=== PATIENT | female | born 1975 | race Two or more races ===

== ENCOUNTER 2019-04-02 18:27 | Emergency (ER) | payer OTHER ==
[~2019-04-02] VITALS: Ht 167.6 cm; Wt 45.4 kg
[2019-04-02] MEDS ORDERED: GABAPENTIN100 MG ORAL (18:34)
[2019-04-02] MEDS ORDERED: NORCO 5-325 TA1 EACH ORAL (18:34)
--- NOTE | 2019-04-02 18:40 | NUR ---
ED Nurse Note: Patient walked into ED from home due to patient unable to urinate since this morning. patient also reports she has been having a back surgery (L4-L5). 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 patient is alert awake x4 ambulatory, breathing unlabored and even, patient placed on a hospital gown and placed on a youth nutritional monitor.
[2019-04-02] MEDS ORDERED: Omnipaque-300 100ml vial INJ PRN (18:45)
[2019-04-02] MEDS ORDERED: D5NS 1,000 ML IV ONE (18:45)
--- NOTE | 2019-04-02 19:08 | Emergency Room Report ---
History of Present Illness General Chief Complaint: General Complaint Source: Patient (Antelmo Andrews MD) Present Illness HPI 43-year-old female history of chronic back pain, history of L4-L5 fusion in December 2018, presents with acute urinary retention x1 day, this a.m. she has been unable to urinate, she endorses some sweats, no aggravating or alleviating factors severity is moderate, constant patient denies any new lower extremity weakness, no fever, no chest pain no shortness of breath no abdominal pain patient presents for evaluation. (Antelmo Andrews MD) Allergies: Coded Allergies: No Known Allergies (Unverified , 04/02/19) Patient History Past Medical History: see triage record Reviewed Nursing Documentation: PMH: Agreed; PSxH: Agreed (Antelmo Andrews MD) Nursing Documentation-PMH Hx Cancer: Yes - bulbar ca (Antelmo Andrews MD) Review of Systems All Other Systems: negative except mentioned in HPI (Antelmo Andrews MD) Physical Exam Vital Signs Date Time Temp Pulse Resp B/P (MAP) Pulse Ox O2 Delivery O2 Flow Rate FiO2 04/02/19 18:30 97.9 112 17 123/70 (87) 100 Room Air Sp02 EP Interpretation: reviewed, normal General Appearance: well appearing, no apparent distress, alert Head: normocephalic, atraumatic Eyes: bilateral eye PERRL, bilateral eye EOMI ENT: uvula midline, moist mucus membranes Neck: supple, thyroid normal, supple/symm/no masses Respiratory: lungs clear, no respiratory distress, no retraction, no accessory muscle use Cardiovascular #1: normal peripheral pulses, regular rate, rhythm, no edema, no gallop, no murmur Gastrointestinal: non tender, no guarding, no rebound, other - Suprapubic fullness, bladder scan shows a large amount of urine Rectal: normal rectal tone, other - Medical Reception Specialist Shy SKINNER Musculoskeletal: normal inspection Neurologic: alert, oriented x3 Psychiatric: mood/affect normal Skin: no rash, warm/dry (Antelmo Andrews MD) Procedures Critical Care Time Critical Care Time i. I feel this is a highly complex case requiring extensive working including EKG/Rhythm strip, Xray/CT/US, Blood/urine lab work, repeat exams while in ED, and administration of strong opiates/narcotics for pain control, admission to hospital or close patient follow up. Total time: 75 min bedside evaluation and treatment excludes procedures (EKG). Reason for critical care: urinary retention, neurolgical deficits, abdominal mass, spinal involvement Possible complications: hypotension, hypertension, CT, shock, arrhythmias, metabolic acidosis, end organ damage, respiratory failure. Interventions: Labs, meds, MRI L-spine, Bob catheter, CT abdomen pelvis, MRI pelvis, discussion with neurosurgery and antibiotics Course: Patient presenting with urinary retention. Back pain. Status post back surgery in December. Bladder scanner showed large volume and patient was placed with Bob. MRI shows large mass intruding on the spine. MRI pelvis documents further of the mass. Patient will require neurosurgical evaluation. Neurosurgeon that performed the surgery is currently credentialed at [place]. However [facility] does not have beds at this time. Currently contacting [facility], [facility] [[email or web address]] and [facility] for higher level of care. Consultations: nursing staff, EMS, family Performed by: Dr Schmidt Tolerated well condition = critical j. because of unstable vital signs this patient had a condition that could potentially threaten life or limb. I feel this is a critical patient who required my full attention while patient was considered critical. Total Critical Care Time excluding procedures was greater than 75 minutes (Jc Schmidt MD) Medical Decision Making Diagnostic Impression: Primary Impression: Urinary retention Additional Impressions: Pelvic mass in female Cauda equina syndrome ER Course 43-year-old female history of back surgery presents with inabilityto urinate x1 day, concerning for cauda equina, a Bob was emergently inserted Patient found to have a mass invading into the sacrum, which may be affecting her nerve roots, patient is able ambulate. Patient bladder decompressed, patient signed out to Dr. Schmidt for further evaluation, Laboratory Tests Test 04/02/19 18:45 04/02/19 19:11 White Blood Count 24.1 K/UL (4.8-10.8) *H Red Blood Count 3.81 M/UL (4.20-5.40) L Hemoglobin 8.5 G/DL (12.0-16.0) L Hematocrit 28.0 % (37.0-47.0) L Mean Corpuscular Volume 73 FL (80-99) L Mean Corpuscular Hemoglobin 22.4 PG (27.0-31.0) L Mean Corpuscular Hemoglobin Concent 30.5 G/DL (32.0-36.0) L Red Cell Distribution Width 13.1 % (11.6-14.8) Platelet Count 921 K/UL (150-450) H Mean Platelet Volume 4.6 FL (6.5-10.1) L Neutrophils (%) (Auto) % (45.0-75.0) Lymphocytes (%) (Auto) % (20.0-45.0) Monocytes (%) (Auto) % (1.0-10.0) Eosinophils (%) (Auto) % (0.0-3.0) Basophils (%) (Auto) % (0.0-2.0) Differential Total Cells Counted 100 Neutrophils % (Manual) 90 % (45-75) H Lymphocytes % (Manual) 5 % (20-45) L Monocytes % (Manual) 5 % (1-10) Eosinophils % (Manual) 0 % (0-3) Basophils % (Manual) 0 % (0-2) Band Neutrophils 0 % (0-8) Platelet Estimate Increased H Platelet Morphology Normal Hypochromasia 1+ Anisocytosis 1+ Microcytosis 1+ Prothrombin Time 11.8 SEC (9.30-11.50) H Prothrombin Time INR 1.1 (0.9-1.1) PTT 29 SEC (23-33) Sodium Level 134 MMOL/L (136-145) L Potassium Level 4.0 MMOL/L (3.5-5.1) Chloride Level 99 MMOL/L (98-107) Carbon Dioxide Level 26 MMOL/L (21-32) Anion Gap 9 mmol/L (5-15) Blood Urea Nitrogen 12 mg/dL (7-18) Creatinine 0.8 MG/DL (0.55-1.30) Estimate Glomerular Filtration Rate > 60 mL/min (>60) Glucose Level 116 MG/DL (74-106) H Calcium Level 9.5 MG/DL (8.5-10.1) Total Bilirubin 0.3 MG/DL (0.2-1.0) Aspartate Amino Transferase (AST) 35 U/L (15-37) Alanine Aminotransferase (ALT) 29 U/L (12-78) Alkaline Phosphatase 108 U/L (46-116) Total Protein 8.6 G/DL (6.4-8.2) H Albumin 2.6 G/DL (3.4-5.0) L Globulin 6.0 g/dL Albumin/Globulin Ratio 0.4 (1.0-2.7) L Lipase 103 U/L (73-393) Human Chorionic Gonadotropin, Quant 1 mIU/mL (1-6) Urine Color Pale yellow Urine Appearance Clear Urine pH 6.5 (4.5-8.0) Urine Specific [place] 1.010 (1.005-1.035) Urine Protein Negative (NEGATIVE) Urine Glucose (UA) Negative (NEGATIVE) Urine Ketones Negative (NEGATIVE) Urine Blood Negative (NEGATIVE) Urine Nitrite Negative (NEGATIVE) Urine Bilirubin Negative (NEGATIVE) Urine Urobilinogen Normal MG/DL (0.0-1.0) Urine Leukocyte Esterase Negative (NEGATIVE) Urine HCG, Qualitative Negative (NEGATIVE) Urine Opiates Screen Negative (NEGATIVE) Urine Barbiturates Screen Negative (NEGATIVE) Phencyclidine (PCP) Screen Negative (NEGATIVE) Urine Amphetamines Screen Negative (NEGATIVE) Urine Benzodiazepines Screen Negative (NEGATIVE) Urine Cocaine Screen Negative (NEGATIVE) Urine Marijuana (THC) Screen Negative (NEGATIVE) (Antelmo Andrews MD) ER Course Patient signed out to me pending CT abdomen pelvis and MRI pelvis. Patient initially seen and evaluated by Dr Andrews; please see his note for full history and physical MRI of L-spine documents a mass that is invading the sacrum and below. CT of abdomen/pelvis comments on a large sacral mass destroying the sacrum and coccyx but unable to clarify the origin of this mass. MRI pelvis describes a sacral coccyx mass which extends into the perirectal region. She is clearly having neurological symptoms with urinary retention. She documented a fever. Afebrile in triage. Has significant white count. Unclear on source. UA negative. X-ray clear. No evidence of epidural abscess or other infectious process on CT or MRI. Broad-spectrum antibiotics given. Patient will require higher level of care transfer. Insurance attempted to transfer patient tests [facility] however they were uncomfortable with this admission and recommended tertiary hospital. The spine surgeon no longer works at [facility] but works at [facility]. We contacted [facility] and while the physician accepted they do not have beds at this time. Currently patient will require higher level of care. We have since reached out to [facility], [facility] and [facility] [[email or web address] We are waiting to hear back Labs Test 04/02/19 18:45 04/02/19 19:11 04/02/19 22:50 White Blood Count 24.1 K/UL (4.8-10.8) Red Blood Count 3.81 M/UL (4.20-5.40) Hemoglobin 8.5 G/DL (12.0-16.0) Hematocrit 28.0 % (37.0-47.0) Mean Corpuscular Volume 73 FL (80-99) Mean Corpuscular Hemoglobin 22.4 PG (27.0-31.0) Mean Corpuscular Hemoglobin Concent 30.5 G/DL (32.0-36.0) Red Cell Distribution Width 13.1 % (11.6-14.8) Platelet Count 921 K/UL (150-450) Mean Platelet Volume 4.6 FL (6.5-10.1) Neutrophils (%) (Auto) % (45.0-75.0) Lymphocytes (%) (Auto) % (20.0-45.0) Monocytes (%) (Auto) % (1.0-10.0) Eosinophils (%) (Auto) % (0.0-3.0) Basophils (%) (Auto) % (0.0-2.0) Differential Total Cells Counted 100 Neutrophils % (Manual) 90 % (45-75) Lymphocytes % (Manual) 5 % (20-45) Monocytes % (Manual) 5 % (1-10) Eosinophils % (Manual) 0 % (0-3) Basophils % (Manual) 0 % (0-2) Band Neutrophils 0 % (0-8) Platelet Estimate Increased Platelet Morphology Normal Hypochromasia 1+ Anisocytosis 1+ Microcytosis 1+ Prothrombin Time 11.8 SEC (9.30-11.50) Prothromb Time International Ratio 1.1 (0.9-1.1) Activated Partial Thromboplast Time 29 SEC (23-33) Sodium Level 134 MMOL/L (136-145) Potassium Level 4.0 MMOL/L (3.5-5.1) Chloride Level 99 MMOL/L (98-107) Carbon Dioxide Level 26 MMOL/L (21-32) Anion Gap 9 mmol/L (5-15) Blood Urea Nitrogen 12 mg/dL (7-18) Creatinine 0.8 MG/DL (0.55-1.30) Estimat Glomerular Filtration Rate > 60 mL/min (>60) Glucose Level 116 MG/DL (74-106) Calcium Level 9.5 MG/DL (8.5-10.1) Total Bilirubin 0.3 MG/DL (0.2-1.0) Aspartate Amino Transf (AST/SGOT) 35 U/L (15-37) Alanine Aminotransferase (ALT/SGPT) 29 U/L (12-78) Alkaline Phosphatase 108 U/L (46-116) Total Protein 8.6 G/DL (6.4-8.2) Albumin 2.6 G/DL (3.4-5.0) Globulin 6.0 g/dL Albumin/Globulin Ratio 0.4 (1.0-2.7) Lipase 103 U/L (73-393) Human Chorionic Gonadotropin, Quant 1 mIU/mL (1-6) Urine Color Pale yellow Urine Appearance Clear Urine pH 6.5 (4.5-8.0) Urine Specific [place] 1.010 (1.005-1.035) Urine Protein Negative (NEGATIVE) Urine Glucose (UA) Negative (NEGATIVE) Urine Ketones Negative (NEGATIVE) Urine Blood Negative (NEGATIVE) Urine Nitrite Negative (NEGATIVE) Urine Bilirubin Negative (NEGATIVE) Urine Urobilinogen Normal MG/DL (0.0-1.0) Urine Leukocyte Esterase Negative (NEGATIVE) Urine HCG, Qualitative Negative (NEGATIVE) Urine Opiates Screen Negative (NEGATIVE) Urine Barbiturates Screen Negative (NEGATIVE) Phencyclidine (PCP) Screen Negative (NEGATIVE) Urine Amphetamines Screen Negative (NEGATIVE) Urine Benzodiazepines Screen Negative (NEGATIVE) Urine Cocaine Screen Negative (NEGATIVE) Urine Marijuana (THC) Screen Negative (NEGATIVE) Lactic Acid Level 1.10 mmol/L (0.4-2.0) (Jc Schmidt MD) EKG Diagnostic Results EKG Time: 18:54 EP Interpretation: Sinus tachycardia, rate 106, QTc 433, no acute ST elevations , normal axis (Antelmo Andrews MD) Rhythm Strip Diag. Results Rhythm Strip Time: 19:08 EP Interpretation: yes Rate: 112 Rhythm: no PVC's, no ectopy, other - Sinus tachycardia (Antelmo Andrews MD) Chest X-Ray Diagnostic Results Chest X-Ray Diagnostic Results : Chest X-Ray Ordered: Yes # of Views/Limited/Complete: 1 View Indication: Other - preop EP Interpretation: Yes Interpretation: no consolidation, no effusion, no pneumothorax, no acute cardiopulmonary disease Impression: No acute disease Electronically Signed by: Antelmo Andrews MD (Antelmo Andrews MD) CT/MRI/US Diagnostic Results CT/MRI/US Diagnostic Results : Impression Final Report ADDENDUM - Added by Efraín Colbert MD on 04/02/2019 9:27 PM (-07:00) FINDINGS: Vertebral elements: Normal vertebral body height within the lumbar spine. Grade 1 anterolisthesis of L5 on S1. There is a large infiltrating mass in the pelvis invading to the sacrum starting from S2 and below. The mass appears to invade into the very distal spinal canal in the sacrum. Postsurgical changes: L4-S1 fusion with posterior decompression. Discs: Dosing and disc height loss. Marrow signal: No edema. Soft tissues: Posterior paraspinal soft tissue changes related to laminectomy and fusion. Conus terminates from L1. Spinal canal: No significant spinal canal stenosis at any level. No significant disc herniations. Neural foramen: Mild bilateral L5-S1 foraminal stenosis. IMPRESSION: Large infiltrating pelvic mass invading in to the sacrum and into the spinal canal. Incompletely characterized once exam. Recommend pelvic MRI with and without contrast for complete characterization and to see if there are involvement of the nerve roots. No definite infectious process or complication from surgery. (Antelmo Andrews MD) CT/MRI/US Diagnostic Results #1: Imaging Test Ordered: MRI L spine Impression Procedure: MRI L Spine no Contrast ADDENDUM - Added by Efraín Colbert MD on 04 02 2019 9:27 PM (-07:00) FINDINGS: Vertebral elements: Normal vertebral body height within the lumbar spine. Grade 1 anterolisthesis of L5 on S1. There is a large infiltrating mass in the pelvis invading to the sacrum starting from S2 and below. The mass appears to invade into the very distal spinal canal in the sacrum. Postsurgical changes: L4-S1 fusion with posterior decompression. Discs: Dosing and disc height loss. Marrow signal: No edema. Soft tissues: Posterior paraspinal soft tissue changes related to laminectomy and fusion. Conus terminates from L1. Spinal canal: No significant spinal canal stenosis at any level. No significant disc herniations. Neural foramen: Mild bilateral L5-S1 foraminal stenosis. IMPRESSION: Large infiltrating pelvic mass invading in to the sacrum and into the spinal canal. Incompletely characterized once exam. Recommend pelvic MRI with and without contrast for complete characterization and to see if there are involvement of the nerve roots. No definite infectious process or complication from surgery. EXAM: MR Lumbar Spine Without Intravenous Contrast CLINICAL HISTORY: PAIN TECHNIQUE: Magnetic resonance images of the lumbar spine without intravenous contrast in multiple planes. COMPARISON: No relevant prior studies available. FINDINGS: Vertebral elements: Normal vertebral body height. Grade 1 anterolisthesis of L5 on S1. Postsurgical changes: L4-S1 fusion with posterior decompression. Discs: Dosing and disc height loss. Marrow signal: No edema. Soft tissues: Posterior paraspinal soft tissue changes related to laminectomy and fusion. Conus terminates from L1. Spinal canal: No significant spinal canal stenosis at any level. No significant disc herniations. Neural foramen: Mild bilateral L5-S1 foraminal stenosis. IMPRESSION: 1. No acute findings. Postsurgical changes from fusion. 2. No significant spinal canal stenosis. Mild bilateral L5-S1 foraminal stenosis. CT/MRI/US Diagnostic Results #2: Imaging Test Ordered: CT A/P Impression Procedure: CT Abdomen Pelvis w/Contrast EXAM: CT Abdomen and Pelvis With Intravenous Contrast CLINICAL HISTORY: ABD PAIN TECHNIQUE: Axial computed tomography images of the abdomen and pelvis with intravenous contrast. CTDI is 13 mGy and DLP is 710 mGy-cm. One or more of the following dose reduction techniques were used: automated exposure control, adjustment of the mA and or kV according to patient size, use of iterative reconstruction technique. COMPARISON: MRI lumbar spine 10 19 FINDINGS: Lung bases: No mass. No consolidation. ABDOMEN: Liver : at least 5 lesions in the liver largest measuring up to 4.2 cm in the right liver. Gallbladder and bile ducts: Unremarkable. Pancreas: Unremarkable. Spleen: Unremarkable. Adrenals: Unremarkable. Kidneys and ureters: No hydronephrosis. Stomach and bowel: No bowel obstruction. No bowel wall thickening. PELVIS: Appendix: No evidence of appendicitis. Bladder: Unremarkable. Bob catheter is inserted. Reproductive: Uterus appears unremarkable. ABDOMEN and PELVIS: Intraperitoneal space: 3.6 cm enhancing mass in the right lower pelvis which appears to be connected to the larger mass in the sacral area. Bones joints: No acute fractures. Soft tissues: Large partially necrotic destructive mass measuring 6.5 x 13 x 9 cm in the sacral region destructing through the mid right lower half of the sacrum and the mid to upper coccyx. There are multiple enlarged nodules in the bilateral buttocks subcutaneous tissue. Vasculature: No abdominal aortic aneurysm. Lymph nodes: No enlarged lymph nodes. IMPRESSION: 1. Large partially necrotic sacral mass destructing through the sacrum and coccyx. Possibly gastrointestinal versus ovarian in origin. Recommend MRI of the pelvis for better characterization. 2. 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 3. Multiple nodules in the bilateral buttocks subcutaneous tissue. Possibly lymph nodes or iatrogenic injections. CT/MRI/US Diagnostic Results #3: Imaging Test Ordered: MRI Pelvis Impression EXAM: MR Pelvis Without and With Intravenous Contrast CLINICAL HISTORY: PAIN TECHNIQUE: Multiplanar magnetic resonance images of the pelvis without and with intravenous contrast. COMPARISON: [address] FINDINGS: Bowel: No bowel obstruction. Bladder: Unremarkable. Reproductive: Unremarkable as visualized. Bones joints: 12 x 6 x 9 cm heterogeneous sacral coccyx mass, which extends to the right perirectal region. Mild edema in the right ischium likely secondary to nearby mass, cannot exclude osteomyelitis or nondisplaced fracture. Soft tissues: Bilateral gluteal postprocedure changes and soft tissue edema. Vasculature: Unremarkable as visualized. Lymph nodes: Unremarkable. IMPRESSION: 1. 12 x 6 x 9 cm heterogeneous sacral coccyx mass, which extends to the right perirectal region. 2. Mild edema in the right ischium likely secondary to nearby mass, cannot exclude osteomyelitis or nondisplaced fracture. (Jc Schmidt MD) Last Vital Signs Date Time Temp Pulse Resp B/P (MAP) Pulse Ox O2 Delivery O2 Flow Rate FiO2 04/02/19 18:30 97.9 112 17 123/70 (87) 100 Room Air (Antelmo Andrews MD) Status: improved (Jc Schmidt MD) Reevaluation Time: 15:08 Reevaluation Impression I assumed care of the patient early this morning approximately 7 AM. The patient was awaiting accepting facility for oncology and neurosurgery evaluation. She has been accepted to [facility] and will be transferred by ambulance as soon as a bed is available. Bob catheter remains in place with the patient is able to ambulate somewhat in the emergency department. She is complaining of persistent pain which we will treat. She is stable for transfer. (Velasquez Prado MD) Disposition: XFER SHT-TRM HOSP Condition: Critical Referrals: [facility],REFERRING (PCP) Antelmo Andrews MD Apr 02, 2019 19:08 Jc Schmidt MD Apr 03, 2019 03:50 Velasquez Prado MD Apr 03, 2019 15:09
[2019-04-02 19:11] LABS: HEMOGLOBIN 8.5 G/DL (12.0-16.0); MEAN CORPUSCULAR VOLUME 73 FL (80-99); PLATELET COUNT 921 K/UL (150-450); RED BLOOD COUNT 3.81 M/UL (4.20-5.40); RED CELL DISTRIBUTION WIDTH 13.1 % (11.6-14.8)
[2019-04-02 19:12] LABS: INR 1.1 (0.9-1.1)
--- NOTE | 2019-04-02 19:21 | NUR ---
HAND-OFF: Report given to Samreen Roberson RN.
[2019-04-02 19:23] LABS: WHITE BLOOD COUNT 24.1 K/UL (4.8-10.8)
[2019-04-02 19:26] LABS: ANION GAP 9 mmol/L (5-15); BLOOD UREA NITROGEN 12 mg/dL (7-18); CALCIUM 9.5 MG/DL (8.5-10.1); CARBON DIOXIDE 26 MMOL/L (21-32); CHLORIDE 99 MMOL/L (98-107); CREATININE 0.8 MG/DL (0.55-1.30); SODIUM 134 MMOL/L (136-145)
[2019-04-02 19:30] LABS: ALANINE AMINOTRANSFERASE 29 U/L (12-78); ALBUMIN 2.6 G/DL (3.4-5.0); ALBUMIN/GLOBULIN RATIO 0.4 (1.0-2.7); ALKALINE PHOSPHATASE 108 U/L (46-116); ASPARTATE AMINO TRANSFERASE 35 U/L (15-37); BILIRUBIN,TOTAL 0.3 MG/DL (0.2-1.0)
[2019-04-02 19:30] LABS: APPEARANCE,URINE CLEAR; BILIRUBIN, URINE NEGATIVE (NEGATIVE); COLOR,URINE PALE YELLOW; GLUCOSE, URINE (UA) NEGATIVE (NEGATIVE); KETONES,URINE NEGATIVE (NEGATIVE); LEUKOCYTE ESTERASE ,URINE NEGATIVE (NEGATIVE); NITRITE,URINE NEGATIVE (NEGATIVE); PH,URINE 6.5 (4.5-8.0); PROTEIN,URINE NEGATIVE (NEGATIVE); UROBILINOGEN,URINE NORMAL MG/DL (0.0-1.0)
[2019-04-02] MEDS: fentaNYL 100 mcg/2 mL IV ONE ×2 (19:30→19:47)
--- NOTE | 2019-04-02 19:30 | NUR ---
ED Nurse Note: Recieved report from am nurse to resume care, pt in bed awake, alert and oriented x 4, pt is on cardiac monitoring, has patent saline lock in right arm and espinosa to gravity, espinosa emptied with 1000ml of urine noted and still running, md aware, pt c/o having severe back pain, pt repositioned with pillows and MD informed pt request for pain meds, will resume care as ordered and continue to closely monitor.
[2019-04-02 19:45] VITALS: BP 129/74
[2019-04-02] MEDS ORDERED: HYDROcodone/Acetamin 5/325 tab ORAL ONE (20:00)
--- NOTE | 2019-04-02 20:18 | NUR ---
To MRI on a stretcher.
--- NOTE | 2019-04-02 20:36 | Diagnostic Imaging Report ---
EXAM: XR Chest, 1 View CLINICAL HISTORY: PREOP TECHNIQUE: Frontal view of the chest. COMPARISON: No relevant prior studies available. FINDINGS: Lungs: No consolidation or mass. Pleural space: No acute findings Heart: No cardiomegaly. Mediastinum: Unremarkable. Bones joints: No acute findings. IMPRESSION: No acute cardiopulmonary process.
--- NOTE | 2019-04-02 21:16 | Diagnostic Imaging Report ---
ADDENDUM - Added by Efraín Colbert MD on 04 02 2019 9:27 PM (-07:00) FINDINGS: Vertebral elements: Normal vertebral body height within the lumbar spine. Grade 1 anterolisthesis of L5 on S1. There is a large infiltrating mass in the pelvis invading to the sacrum starting from S2 and below. The mass appears to invade into the very distal spinal canal in the sacrum. Postsurgical changes: L4-S1 fusion with posterior decompression. Discs: Dosing and disc height loss. Marrow signal: No edema. Soft tissues: Posterior paraspinal soft tissue changes related to laminectomy and fusion. Conus terminates from L1. Spinal canal: No significant spinal canal stenosis at any level. No significant disc herniations. Neural foramen: Mild bilateral L5-S1 foraminal stenosis. IMPRESSION: Large infiltrating pelvic mass invading in to the sacrum and into the spinal canal. Incompletely characterized once exam. Recommend pelvic MRI with and without contrast for complete characterization and to see if there are involvement of the nerve roots. No definite infectious process or complication from surgery. EXAM: MR Lumbar Spine Without Intravenous Contrast CLINICAL HISTORY: PAIN TECHNIQUE: Magnetic resonance images of the lumbar spine without intravenous contrast in multiple planes. COMPARISON: No relevant prior studies available. FINDINGS: Vertebral elements: Normal vertebral body height. Grade 1 anterolisthesis of L5 on S1. Postsurgical changes: L4-S1 fusion with posterior decompression. Discs: Dosing and disc height loss. Marrow signal: No edema. Soft tissues: Posterior paraspinal soft tissue changes related to laminectomy and fusion. Conus terminates from L1. Spinal canal: No significant spinal canal stenosis at any level. No significant disc herniations. Neural foramen: Mild bilateral L5-S1 foraminal stenosis. IMPRESSION: 1. No acute findings. Postsurgical changes from fusion. 2. No significant spinal canal stenosis. Mild bilateral L5-S1 foraminal stenosis. <MYCVCSECTION> Critical Value [facility] 04 02 19 21:24 Call From [facility] Dr. Andrews on 04 02 21:21 (-07:00)
[2019-04-02] MEDS ORDERED: Gadavist 7.5mMol/7.5ml vial IV PRN (21:30)
[2019-04-02] MEDS ORDERED: LORazepam Inj 2mg/ml 1ml IV ONE (21:45)
--- NOTE | 2019-04-02 21:55 | NUR ---
ED Nurse Note: Pt remains in imaging department recieving images and MRI, recieved call from tech stating pt is very anxious, in severe pain and can not do MRI, MD aware, meds ordered, went to imaging and gave meds for pain and anxiety, pt tolerating well and meds immediately effective, pt still there completing exam, will resume care when pt returns to department.
[2019-04-02] MEDS ORDERED: Hydromorphone 0.5mg/0.5ml inj IVP ONE (22:00)
--- NOTE | 2019-04-02 22:13 | Diagnostic Imaging Report ---
EXAM: CT Abdomen and Pelvis With Intravenous Contrast CLINICAL HISTORY: ABD PAIN TECHNIQUE: Axial computed tomography images of the abdomen and pelvis with intravenous contrast. CTDI is 13 mGy and DLP is 710 mGy-cm. One or more of the following dose reduction techniques were used: automated exposure control, adjustment of the mA and or kV according to patient size, use of iterative reconstruction technique. COMPARISON: MRI lumbar spine 10 12 19 FINDINGS: Lung bases: No mass. No consolidation. ABDOMEN: Liver : at least 5 lesions in the liver largest measuring up to 4.2 cm in the right liver. Gallbladder and bile ducts: Unremarkable. Pancreas: Unremarkable. Spleen: Unremarkable. Adrenals: Unremarkable. Kidneys and ureters: No hydronephrosis. Stomach and bowel: No bowel obstruction. No bowel wall thickening. PELVIS: Appendix: No evidence of appendicitis. Bladder: Unremarkable. Bob catheter is inserted. Reproductive: Uterus appears unremarkable. ABDOMEN and PELVIS: Intraperitoneal space: 3.6 cm enhancing mass in the right lower pelvis which appears to be connected to the larger mass in the sacral area. Bones joints: No acute fractures. Soft tissues: Large partially necrotic destructive mass measuring 6.5 x 13 x 9 cm in the sacral region destructing through the mid right lower half of the sacrum and the mid to upper coccyx. There are multiple enlarged nodules in the bilateral buttocks subcutaneous tissue. Vasculature: No abdominal aortic aneurysm. Lymph nodes: No enlarged lymph nodes. IMPRESSION: 1. Large partially necrotic sacral mass destructing through the sacrum and coccyx. Possibly gastrointestinal versus ovarian in origin. Recommend MRI of the pelvis for better characterization. 2. 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 3. Multiple nodules in the bilateral buttocks subcutaneous tissue. Possibly lymph nodes or iatrogenic injections.
[2019-04-02] MEDS ORDERED: cefTRIAXone 1 GM in NS 55 ML IVPB ONE (22:15)
[2019-04-02 22:45] VITALS: BP 114/78
--- NOTE | 2019-04-02 23:03 | Diagnostic Imaging Report ---
EXAM: MR Pelvis Without and With Intravenous Contrast CLINICAL HISTORY: PAIN TECHNIQUE: Multiplanar magnetic resonance images of the pelvis without and with intravenous contrast. COMPARISON: [address] FINDINGS: Bowel: No bowel obstruction. Bladder: Unremarkable. Reproductive: Unremarkable as visualized. Bones joints: 12 x 6 x 9 cm heterogeneous sacral coccyx mass, which extends to the right perirectal region. Mild edema in the right ischium likely secondary to nearby mass, cannot exclude osteomyelitis or nondisplaced fracture. Soft tissues: Bilateral gluteal postprocedure changes and soft tissue edema. Vasculature: Unremarkable as visualized. Lymph nodes: Unremarkable. IMPRESSION: 1. 12 x 6 x 9 cm heterogeneous sacral coccyx mass, which extends to the right perirectal region. 2. Mild edema in the right ischium likely secondary to nearby mass, cannot exclude osteomyelitis or nondisplaced fracture.
[2019-04-03] VITALS (8 sets, daily range): BP systolic 96–115; BP diastolic 48–86
--- NOTE | 2019-04-03 | NUR ---
ED Nurse Note: Pt continues to sleep in bed, IV antibiotic ordered has completed, no s/s of adverse reaction noted, iv site intact and patent, pt recieving fluids, b/p has slight drop, MD aware, pt also lying on stomach then complains that stomach hurts, pt assisted to semi-fowlers position and lower extremities elevated for comfort, pt remains on cardiac monitoring, will continue to closely monitor while waiting for transfer information, will continue to closely monitor.
--- NOTE | 2019-04-03 02:00 | NUR ---
ED Nurse Note: Pt B/p remains low, pt continues to ask for pain meds, several times explained to pt that b/p has to be higher for meds to be given, MD is aware, pt recieving IV Fluids as ordered, iv site intact, pt repositioned and turned with pillows, will continue to closely monitor, espinosa to gravity and pt on monitoring.
--- NOTE | 2019-04-03 02:29 | NUR ---
Face sheet, doctors dictation, clinicals and all CT and MRI reports faxed to Kieran at [facility] as requested.
--- NOTE | 2019-04-03 02:36 | NUR ---
Face sheet, doctors dictation, clinicals and all CT and MRI reports faxed to Florencia @ [facility]
[2019-04-03] MEDS ORDERED: HYDROcodone/Acetamin 5/325 tab ORAL ONE (03:15)
--- NOTE | 2019-04-03 04:31 | NUR ---
Follow up call to [facility] she will try to get in touch with attending again to call us to speak with .
--- NOTE | 2019-04-03 05:12 | NUR ---
[facility] called inquiring about patients disposition made or not, will review the chart again and call us back.
--- NOTE | 2019-04-03 06:42 | NUR ---
[facility] called back @0640 spoke elissa Alcaraz and stated that pt might possibly be accepted at facility, but will have to be referred to the Oncology Dept. Oncology Dept physician will review documents after @0730 and if accepted @ [facility] facility will call back and give transfer info.
--- NOTE | 2019-04-03 07:56 | NUR ---
Note lyndon in EDM - 04/03/19 at 0757 by RAYMON ED Nurse Note: Pt asked for oral care. Provided with toothpaste and toothbrush. Lemon swabs kortney given to patient.
--- NOTE | 2019-04-03 07:57 | NUR ---
ED Nurse Note: Pt asked for oral care. Provided with toothpaste and toothbrush. Lemon swabs also given to patient.
[2019-04-03] MEDS ORDERED: Morphine Sulfate 4mg/ml Inj (IV USE ONLY) IVP ONE (12:45)
--- NOTE | 2019-04-03 13:04 | NUR ---
ED Nurse Note: MOTHER AT THE BED SIDE.
--- NOTE | 2019-04-03 13:59 | NUR ---
ED Nurse Note: PT TRANSFERRED BACK TO [facility] WITH [facility]. ALL BELONGINGS SENT WITH PT.
== END 2019-04-03 13:59 | disposition short-term general hospital (02) ==
LOC: EMR 18:56 → CANBEDREQ 04-03 12:17 → EMR 04-03 13:59
DX: R33.9 Retention of urine, unspecified (principal); G83.4 Cauda equina syndrome; R19.09 Other intra-abdominal and pelvic swelling, mass and lump; R00.0 Tachycardia, unspecified; M48.07 Spinal stenosis, lumbosacral region; M43.17 Spondylolisthesis, lumbosacral region; Z98.1 Arthrodesis status; R10.9 Unspecified abdominal pain; Z85.89 Personal history of malignant neoplasm of other organs and systems
CPT/HCPCS: 36415; 71045; 72148; 72195; 74177; 80053; 80307; 81003; 81025; 82962; 83605; 83690; 84702; 85007; 85025; 85610; 85730; 86850; 86900; 86901; 87040; 93005; 96361; 96365; 96367; 96375; 96376; J0696; J1170; J2270; J2405; Q9967; Z7502; 99291; 99292; J7030

== ENCOUNTER 2019-09-21 14:18 | Emergency (ER) | payer OTHER ==
[~2019-09-21] VITALS: Ht 160 cm; Wt 45.4 kg
[~2019-09-21 14:18] MED LIST: GABAPENTIN100 MG ORAL; NORCO 5-325 TA1 EACH ORAL
[2019-09-21 14:42] VITALS: BP 97/69
--- NOTE | 2019-09-21 14:57 | Emergency Room Report ---
History of Present Illness General Chief Complaint: Female Urogenital Problems Source: Patient Present Illness HPI The patient presents with 2 days of low back pain and inability to urinate. In the past she has had urinary tract infections. She is had alleged spinal surgery and has urinary retention frequently. This usually is taking care of by a Bob catheter. She denies any fevers or chills. There is no flank pain. She denies any blood in the urine. She does not believe she is at this time. She also complains of constipation. She says that she has this is related to pain medication that she has been taking. She rates the pain in her abdomen and back is 10/10. Pressure in her abdomen and aching in her lower back. This is nonradiating. No fevers, chills, sore throat, chest pain, palpitations, nausea, vomiting, diarrhea, shortness of breath, rashes, visual changes, dizziness, headache. Patient was seen here March 2019. She was transferred as she had a pelvic mass and urinary retention. This is the MRI done at that time: Large infiltrating pelvic mass invading in to the sacrum and into the spinal canal. Incompletely characterized once exam. Recommend pelvic MRI with and without contrast for complete characterization and to see if there are involvement of the nerve roots. CT results: 1. Large partially necrotic sacral mass destructing through the sacrum and coccyx. Possibly gastrointestinal versus ovarian in origin. Recommend MRI of the pelvis for better characterization. 2. 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 3. Multiple nodules in the bilateral buttocks subcutaneous tissue. Possibly lymph nodes or iatrogenic injections. She is getting chemotherapy once a week. She took Oxycodone before coming in. Allergies: Coded Allergies: No Known Allergies (Unverified , 04/02/19) COVID-19 Screening Contact w/high risk pt: No Recent Travel to affected area: No Experienced COVID-19 symptoms?: No Patient History Past Medical History: see triage record, old chart reviewed Past Surgical History: other - spine surgery Social History: Denies: smoking, alcohol use, drug use Social History Narrative At home Reviewed Nursing Documentation: PMH: Agreed; PSxH: Agreed Nursing Documentation-PMH Hx Cancer: Yes - bulbar ca Review of Systems All Other Systems: negative except mentioned in HPI Physical Exam Vital Signs Date Time Temp Pulse Resp B/P (MAP) Pulse Ox O2 Delivery O2 Flow Rate FiO2 09/21/19 14:25 98.1 98 19 97/69 (78) 100 Room Air Sp02 EP Interpretation: reviewed, normal General Appearance: mild distress, thin, Chronically Ill Head: normocephalic Eyes: bilateral eye PERRL, bilateral eye conjunctivae pale ENT: moist mucus membranes Neck: supple Respiratory: lungs clear, normal breath sounds Cardiovascular #1: regular rate, rhythm Cardiovascular #2: 2+ radial (R) Gastrointestinal: no guarding, no rebound, distended - 20-week size bladder, tenderness Genitourinary: no CVA tenderness Musculoskeletal: normal range of motion, gait/station normal, other - Lumbar tenderness Neurologic: alert, motor strength/tone normal, DTRs symmetric, oriented x3, sensory intact Psychiatric: anxious Skin: no rash, warm/dry, pallor Medical Decision Making Diagnostic Impression: Primary Impression: Urinary retention Additional Impressions: Pelvic mass in female Metastatic cancer Anemia Qualified Codes: D64.9 - Anemia, unspecified ER Course Patient presents with urinary retention. Differential includes urinary tract infection, urinary retention post back surgery, pyelonephritis, renal failure from urinary retention amongst others. Evaluation with labs including urinalysis. Patient will receive a Bob. In addition Tylenol, Reglan and Benadryl will be administered for pain primarily. Extremely complex patient. Urine output 2000 cc with Bob. Prior records reviewed. Patient refusing labs and IV. Patient refusing pain medicine. Discussion with her. Patient anxious. Requests Ativan. Ordered. Bloods drawn by lab. Normal white count. Anemia. Urinalysis with nitrite positive but few white blood cells. Elevated bilirubin may be because of elevated nitrite. History of liver metastasis. Discussed will wait for culture. Not start antibiotics. Improved after Ativan. Pain persists but is improved. Discussed findings with patient and treatment plan. Discussed the need for close outpatient observation and reevaluation. Patient stable for outpatient observation and treatment. Laboratory Tests Test 09/21/19 14:40 09/21/19 16:15 Urine Color Pale yellow Urine Appearance Clear Urine pH 6 (4.5-8.0) Urine Specific [place] 1.015 (1.005-1.035) Urine Protein Negative (NEGATIVE) Urine Glucose (UA) Negative (NEGATIVE) Urine Ketones Negative (NEGATIVE) Urine Blood 2+ (NEGATIVE) H Urine Nitrite Positive (NEGATIVE) H Urine Bilirubin Negative (NEGATIVE) Urine Urobilinogen Normal MG/DL (0.0-1.0) Urine Leukocyte Esterase 1+ (NEGATIVE) H Urine RBC 2-4 /HPF (0 - 2) H Urine WBC 0-2 /HPF (0 - 2) Urine Squamous Epithelial Cells Occasional /LPF Urine Bacteria Moderate /HPF (NONE) H Urine HCG, Qualitative Negative (NEGATIVE) White Blood Count 10.6 K/UL (4.8-10.8) Red Blood Count 3.14 M/UL (4.20-5.40) L Hemoglobin 8.9 G/DL (12.0-16.0) L Hematocrit 28.0 % (37.0-47.0) L Mean Corpuscular Volume 89 FL (80-99) Mean Corpuscular Hemoglobin 28.3 PG (27.0-31.0) Mean Corpuscular Hemoglobin Concent 31.8 G/DL (32.0-36.0) L Red Cell Distribution Width 19.6 % (11.6-14.8) H Platelet Count 325 K/UL (150-450) Mean Platelet Volume 5.7 FL (6.5-10.1) L Neutrophils (%) (Auto) 76.3 % (45.0-75.0) H Lymphocytes (%) (Auto) 11.4 % (20.0-45.0) L Monocytes (%) (Auto) 10.6 % (1.0-10.0) H Eosinophils (%) (Auto) 0.4 % (0.0-3.0) Basophils (%) (Auto) 1.4 % (0.0-2.0) Sodium Level 133 MMOL/L (136-145) L Potassium Level 4.1 MMOL/L (3.5-5.1) Chloride Level 98 MMOL/L (98-107) Carbon Dioxide Level 25 MMOL/L (21-32) Anion Gap 11 mmol/L (5-15) Blood Urea Nitrogen 8 mg/dL (7-18) Creatinine 0.7 MG/DL (0.55-1.30) Estimated Glomerular Filtration Rate > 60 mL/min (>60) Glucose Level 87 MG/DL (74-106) Calcium Level 9.6 MG/DL (8.5-10.1) Total Bilirubin 0.3 MG/DL (0.2-1.0) Aspartate Amino Transferase (AST) 18 U/L (15-37) Alanine Aminotransferase (ALT) 9 U/L (12-78) L Alkaline Phosphatase 107 U/L (46-116) Total Protein 8.0 G/DL (6.4-8.2) Albumin 2.7 G/DL (3.4-5.0) L Globulin 5.3 g/dL Albumin/Globulin Ratio 0.5 (1.0-2.7) L Lipase 48 U/L (73-393) L Rhythm Strip Diag. Results EP Interpretation: yes Rhythm: NSR, no PVC's, no ectopy Last Vital Signs Date Time Temp Pulse Resp B/P (MAP) Pulse Ox O2 Delivery O2 Flow Rate FiO2 09/21/19 17:26 76 19 101/66 100 Room Air 09/21/19 14:42 98.1 Status: improved Disposition: HOME, SELF-CARE Condition: Improved Zacarias Huang MD Sep 21, 2019 14:57
[2019-09-21] MEDS ORDERED: DiphenhydrAMINE 50mg/ml Inj IVP ONE (15:00)
[2019-09-21] MEDS ORDERED: Metoclopramide 10mg/2ml Inj IVP ONE (15:00)
[2019-09-21 15:05] LABS: APPEARANCE,URINE CLEAR; BILIRUBIN, URINE NEGATIVE (NEGATIVE); COLOR,URINE PALE YELLOW; GLUCOSE, URINE (UA) NEGATIVE (NEGATIVE); KETONES,URINE NEGATIVE (NEGATIVE); LEUKOCYTE ESTERASE ,URINE 1+ (NEGATIVE); NITRITE,URINE POSITIVE (NEGATIVE); PH,URINE 6 (4.5-8.0); PROTEIN,URINE NEGATIVE (NEGATIVE); UROBILINOGEN,URINE NORMAL MG/DL (0.0-1.0)
--- NOTE | 2019-09-21 15:48 | NUR ---
ED Nurse Note: attempted to place iv site multiple times, pt refusing further attempts. plant mechanic called to draw pt. aware. pt also refusing medications, stating she can take her own meds. pt tolerates placement of espinosa cath well 2000ml output noted after initiation. pt desires to be dc home, aware.
[2019-09-21] MEDS ORDERED: LORazepam 1mg tab ORAL ONE (16:15)
--- NOTE | 2019-09-21 16:25 | NUR ---
ED Nurse Note: labs done by sourcing internship, pending. po meds given
[2019-09-21 16:41] LABS: BASOPHILS % (AUTO) 1.4 % (0.0-2.0); EOSINOPHILS % (AUTO) 0.4 % (0.0-3.0); HEMOGLOBIN 8.9 G/DL (12.0-16.0); LYMPHOCYTES % (AUTO) 11.4 % (20.0-45.0); MEAN CORPUSCULAR VOLUME 89 FL (80-99); MONOCYTES % (AUTO) 10.6 % (1.0-10.0); NEUTROPHILS % (AUTO) 76.3 % (45.0-75.0); PLATELET COUNT 325 K/UL (150-450); RED BLOOD COUNT 3.14 M/UL (4.20-5.40); RED CELL DISTRIBUTION WIDTH 19.6 % (11.6-14.8); WHITE BLOOD COUNT 10.6 K/UL (4.8-10.8)
[2019-09-21 16:53] LABS: ANION GAP 11 mmol/L (5-15); BLOOD UREA NITROGEN 8 mg/dL (7-18); CALCIUM 9.6 MG/DL (8.5-10.1); CARBON DIOXIDE 25 MMOL/L (21-32); CHLORIDE 98 MMOL/L (98-107); CREATININE 0.7 MG/DL (0.55-1.30); POTASSIUM 4.1 MMOL/L (3.5-5.1); SODIUM 133 MMOL/L (136-145)
[2019-09-21 16:57] LABS: ALANINE AMINOTRANSFERASE 9 U/L (12-78); ALBUMIN 2.7 G/DL (3.4-5.0); ALBUMIN/GLOBULIN RATIO 0.5 (1.0-2.7); ALKALINE PHOSPHATASE 107 U/L (46-116); ASPARTATE AMINO TRANSFERASE 18 U/L (15-37); BILIRUBIN,TOTAL 0.3 MG/DL (0.2-1.0)
--- NOTE | 2019-09-21 17:25 | NUR ---
ED Nurse Note: Pt cleared by health care Provider for discharge. DC instructions/referral was given and explained to pt and verbalized understanding of teachings. All medical devices such as ID band removed. Pt is AAO x4, ambulatory and left with all personal belongings. pt home with two leg bags for at home care. aware of how to use and empty. relates feeling improved after ativan given
[2019-09-21 17:26] VITALS: BP 101/66
== END 2019-09-21 17:30 | disposition home or self-care (01) ==
LOC: EMR 14:53
DX: R33.9 Retention of urine, unspecified (principal); R19.00 Intra-abdominal and pelvic swelling, mass and lump, unspecified site; D64.9 Anemia, unspecified; M54.5 Low back pain; C78.7 Secondary malignant neoplasm of liver and intrahepatic bile duct
CPT/HCPCS: 36415; 51702; 80053; 81003; 81025; 83690; 85025; 87086; 87181; Z7502; 99284